=== PATIENT | male | born 1990 | race Two or more races ===

== ENCOUNTER 2021-11-24 15:36 | Emergency (ER) | payer BC ==
[~2021-11-24] VITALS: Ht 172.7 cm; Wt 63.5 kg
[2021-11-24] MEDS ORDERED: PEPCID AC20 MG PO (18:03)
== END 2021-11-24 18:24 | disposition home or self-care (01) ==
LOC: ER 15:36 → EDBD 16:06 → ER 18:24
DX: K52.9 Noninfective gastroenteritis and colitis, unspecified (principal); R11.10 Vomiting, unspecified; Z88.0 Allergy status to penicillin; Z20.822 Contact with and (suspected) exposure to COVID-19